=== PATIENT | female | born 1960 | race Caucasian/White ===

== ENCOUNTER → 2017-01-05 | Outpatient (CLI) | payer BC | LOC: MC.RAD 08:00 | DX: D24.2 Benign neoplasm of left breast (principal); D24.1 Benign neoplasm of right breast ==

== ENCOUNTER → 2018-02-19 | Outpatient (CLI) | payer BC | LOC: MC.RAD 11:36 | DX: Z12.31 Encounter for screening mammogram for malignant neoplasm of breast (principal) ==

== ENCOUNTER → 2019-03-04 | Outpatient (CLI) | payer BC | LOC: MC.RAD 11:38 | DX: Z12.31 Encounter for screening mammogram for malignant neoplasm of breast (principal) ==